=== PATIENT | female | born 1970 | race Hispanic/Latino ===

== ENCOUNTER 2017-11-17 14:17 | Outpatient (CLI) | payer OTHER ==
--- NOTE | 2017-11-17 19:32 | XRay Report ---
FINAL REPORT PROCEDURE: XR KNEE 4+V RT TECHNIQUE: LEFT knee radiographs, 4 or more views, including AP, lateral, and sunrise view and tunnel views. CPT 33857 HISTORY: RIGHT KNEE PAIN COMPARISON: No prior studies are available for comparison. FINDINGS: No evidence of fracture or dislocation. Minimal joint effusion is visualized. Minimal marginal osteophytic spurs are seen in the medial compartment of the knee and patellar femoral joint space consistent with mild osteoarthritis. Lateral compartment is well preserved. There is mild ossification of the quadriceps tendon insertion on the patella. IMPRESSION: Minimal joint effusion and osteoarthritis as described..
== END 2017-11-17 14:18 | disposition home or self-care (01) ==
LOC: SPVIMAG 14:17
PROVIDERS: ATTEND Orthopaedic Surgery
DX: M17.11 Unilateral primary osteoarthritis, right knee (principal)

== ENCOUNTER 2019-10-17 10:49 | Outpatient (CLI) | payer OTHER ==
--- NOTE | 2019-10-17 13:31 | Mammography Report ---
DIGITAL SCREENING MAMMOGRAM WITH CAD, 10/17/2019 INDICATION: Routine screening mammography. TECHNIQUE: Digital bilateral 2D mammography was obtained in the craniocaudal and mediolateral obliq ue projections. This examination was interpreted with the benefit of Computer-Aided Detection analysi s. COMPARISON: 06/20/2018 and 12/25/2014 FINDINGS: Breast Density: The breasts are heterogeneously dense, which may obscure small masses. There is no evidence of dominant mass, suspicious calcifications or architectural distortion in eithe r breast. IMPRESSION: No mammographic evidence of malignancy. Follow up recommendation: Routine yearly BI-RADS Category 1: Negative. A "normal" or negative report should not discourage follow up or biopsy of a clinically significant f inding. A written summary of these findings will be mailed to the patient. The patient will be entered into a mammography reporting system which will generate a reminder letter for the patient's next appointmen t at the appropriate interval. The [employer] recommends yearly mammograms starting at age 40 and continuing as l rio as a woman is in good health. Breast MRI is recommended for women with an approximate 20-25% or greater lifetime risk of breast cancer, including women with a strong family history of breast or ova opal cancer or who have been treated for Hodgkin's disease. Signer Name: Alberto Reyes MD Signed: 10/17/2019 1:26 PM Workstation Name: [id number]
== END 2019-10-17 10:50 | disposition home or self-care (01) ==
LOC: SPVWC 10:49
PROVIDERS: ATTEND Obstetrics & Gynecology
DX: Z12.31 Encounter for screening mammogram for malignant neoplasm of breast (principal)
CPT/HCPCS: 77067

== ENCOUNTER 2021-02-07 08:46 | Outpatient (CLI) | payer OTHER ==
--- NOTE | 2021-02-07 11:08 | Mammography Report ---
DIGITAL SCREENING MAMMOGRAM WITH TOMOSYNTHESIS WITH CAD, 02/07/2021 CLINICAL INFORMATION / INDICATION: Routine Screening Mammography. TECHNIQUE: Digital bilateral 2D and 3D mammography with tomosynthesis was obtained in the craniocaud al and mediolateral oblique projections. Computer-Aided Detection (CAD) analysis was used for interp retation of this study. COMPARISON: 10/17/2019, 06/20/2018 FINDINGS: Breast Density: There are scattered areas of fibroglandular density. No dominant mass, suspicious calcifications, or architectural distortion in either breast. IMPRESSION: No mammographic evidence of malignancy. Follow up recommendation: Routine yearly BI-RADS Category 1: Negative. A "normal" or negative report should not discourage follow up or biopsy of a clinically significant f inding. A written summary of these findings will be mailed to the patient. The patient will be entered into a mammography reporting system which will generate a reminder letter for the patient's next appointmen t at the appropriate interval. The [employer] recommends yearly mammograms starting at age 40 and continuing as l rio as a woman is in good health. Breast MRI is recommended for women with an approximate 20-25% or greater lifetime risk of breast cancer, including women with a strong family history of breast or ova opal cancer or who have been treated for Hodgkin's disease. Signer Name: Melissa Swift MD Signed: 02/07/2021 11:03 AM Workstation Name: [id number]
== END 2021-02-07 08:47 | disposition home or self-care (01) ==
LOC: SPVWC 08:46
PROVIDERS: ATTEND Obstetrics & Gynecology
DX: Z12.31 Encounter for screening mammogram for malignant neoplasm of breast (principal); N64.89 Other specified disorders of breast
CPT/HCPCS: 77063; 77067